=== PATIENT | male | born 1955 | race Caucasian/White ===

== ENCOUNTER 2017-12-29 11:16 | Emergency (ER) | payer OTHER ==
[2017-12-29 12:02] LABS: ADD MAN DIFF? NO
[2017-12-29 12:04] LABS: WHITE BLOOD COUNT 10.4 10^3/ul (4.8-10.8)
[2017-12-29 12:04] LABS: BASOPHILS % 0.2 % (0.0-2.0); EOSINOPHILS % 0.1 % (0.0-7.0); HEMATOCRIT 40.8 % (42.0-52.0); HEMOGLOBIN 14.3 g/dl (14.0-18.0); LYMPHOCYTES # 1.4 10^3/ul (0.8-2.9); LYMPHOCYTES % 13.7 % (15.0-51.0); MEAN CORPUSCULAR HEMOGLOBIN 30.6 pg (29.0-33.0); MEAN CORPUSCULAR VOLUME 87.2 fl (82.0-101.0); MEAN PLATELET VOLUME 10.2 fl (7.4-10.4); MONOCYTE # 0.3 10^3/ul (0.3-0.9); MONOCYTES % 2.6 % (0.0-11.0); NEUTROPHIL # 8.7 10^3/ul (1.6-7.5); PLATELET COUNT 243 10^3/UL (140-415); RED BLOOD COUNT 4.68 10^6/ul (4.70-6.10); RED CELL DISTRIBUTION WIDTH 12.5 % (11.5-14.5)
[2017-12-29] MEDS: MECLIZINE 12.5 MG TAB PO (12:05)
[2017-12-29] MEDS: SOD CHLORIDE 0.9% 500 ML IV (12:05)
[2017-12-29] MEDS: ONDANSETRON 4 MG INJ IV (12:05)
[2017-12-29 12:23] LABS: ANION GAP 15 (8-16); BLOOD UREA NITROGEN 19 mg/dl (7-20); CALCIUM 9.3 mg/dl (8.4-10.2); CARBON DIOXIDE 25 mmol/L (21-31); CHLORIDE 105 mmol/L (97-110); CREATININE 0.84 mg/dl (0.61-1.24); GLUCOSE 213 mg/dl (70-220); POTASSIUM 4.4 mmol/L (3.5-5.1); SODIUM 141 mmol/L (135-144)
== END 2017-12-29 13:19 | disposition home or self-care (01) ==
LOC: E/R 11:16
DX: R42 Dizziness and giddiness (principal); E11.9 Type 2 diabetes mellitus without complications; F17.210 Nicotine dependence, cigarettes, uncomplicated; Z79.84 Long term (current) use of oral hypoglycemic drugs
CPT/HCPCS: 36415; 70450; 80048; 85025; 93005; 96374; 99285-25